=== PATIENT | female | born 1940 | race Caucasian/White ===

== ENCOUNTER 2019-09-25 09:24 | Inpatient (IN) | payer MEDICARE, BC ==
[~2019-09-25] VITALS: Ht 162.6 cm; Wt 66.6 kg
[~2019-09-25 09:24] MED LIST: MECL-183 PO
[2019-09-25] MEDS ORDERED: ipratropium/albuterol 3ml nebule NEB ONE (09:30)
[2019-09-25] MEDS ORDERED: furosemide 40mg/4ml inj IV ONE (09:30)
[2019-09-25] MEDS ORDERED: methylPREDNISolone sod succ 125mg/2ml vial IV ONE (09:30)
[2019-09-25] MEDS ORDERED: fentaNYL/PF 50MCG/1 ML 2ML syringe IV ONE (09:55)
[2019-09-25 10:04] LABS: BASOPHILS % (AUTO) 0.3 % (0-1); EOSINOPHILS % (AUTO) 0.5 % (0-6); HEMATOCRIT 41.7 % (35.0-45.0); HEMOGLOBIN 13.9 g/dl (12.0-16.0); LYMPHOCYTES # (AUTO) 0.8 X10'3 (1.1-4.8); LYMPHOCYTES % (AUTO) 9.7 % (21-51); MEAN CORPUSCULAR HEMOGLOBIN 31.7 PG (27.0-31.0); MEAN CORPUSCULAR HGB CONC 33.4 g/dL (33.0-36.5); MEAN CORPUSCULAR VOLUME 94.8 FL (78-98); MEAN PLATELET VOLUME 7.5 FL (7.4-10.4); MONOCYTES # (AUTO) 0.6 X10'3 (0-0.9); MONOCYTES % (AUTO) 7.3 % (2-12); NEUTROPHILS # (AUTO) 6.7 X10'3 (1.8-7.7); NEUTROPHILS % (AUTO) 82.2 % (42-75); PLATELET COUNT 228 X10'3 (140-440); RED CELL DISTRIBUTION WIDTH 13.4 % (11.5-14.5); WHITE BLOOD COUNT 8.1 X10'3 (4.5-11.0)
[2019-09-25 10:16] LABS: PARTIAL THROMBOPLASTIN TIME 27 SECONDS (22-32)
[2019-09-25 10:19] LABS: ALANINE AMINOTRANSFERASE 19 U/L (12-78); ALBUMIN 3.4 G/DL (3.4-5.0); ALBUMIN/GLOBULIN RATIO 0.9 (1.1-1.5); ALKALINE PHOSPHATASE 86 IU/L (46-116); ANION GAP 4 (8-16); ASPARTATE AMINO TRANSFERASE 19 U/L (10-37); BILIRUBIN,TOTAL 0.4 MG/DL (0.1-1.0); BLOOD UREA NITROGEN 10 MG/DL (7-18); BUN/CREATININE RATIO 11.6 (6.6-38.0); CALCIUM 8.9 MG/DL (8.5-10.1); CHLORIDE 102 MMOL/L (99-107); CREATININE 0.86 MG/DL (0.40-0.90); GLUCOSE 150 MG/DL (70-104); POTASSIUM 4.2 MMOL/L (3.5-5.1); SODIUM 138 MMOL/L (135-145); TOTAL CARBON DIOXIDE 32.4 MMOL/L (24-32); TOTAL PROTEIN 7.2 G/DL (6.4-8.2); eGFR 64 ML/MIN
[2019-09-25] MEDS ORDERED: DONE5TAB7 PO (10:44)
[2019-09-25] MEDS ORDERED: MEMA28CA PO (10:44)
--- NOTE | 2019-09-25 10:45 | NUR ---
Pt's daughter is Naomi Soriano, she is POA. She lives in the [facility] and is currently working on getting us the paperwork as the pt has Alzheimer's Disease. Naomi can be reached at [phone].
--- NOTE | 2019-09-25 10:47 | NUR ---
Pt's roommate is Juanis Brown and he is also able to have information per daughter, Naomi Soriano. He can be reached at [phone] or [phone].
[2019-09-25] MEDS ORDERED: magnesium hydroxide 30ml (MOM) UD suspension PO PRN (11:10)
[2019-09-25] MEDS ORDERED: ondansetron/PF 4mg/2ml inj IV PRN (11:10)
[2019-09-25] MEDS ORDERED: acetaminophen 325mg tablet PO PRN ×2 (11:10)
[2019-09-25] MEDS ORDERED: mag hydrox/Alum hydrox/simeth 30ml oral suspension PO PRN (11:10)
[2019-09-25] MEDS ORDERED: morphine 2 MG/ML inj. syringe IV PRN ×2 (11:10)
[2019-09-25 11:27] LABS: CLARITY,URINE CLEAR (Clear); COLOR,URINE YELLOW (Yellow); GLUCOSE, URINE NEGATIVE (Neg); KETONES,URINE 15 mg/dl (Neg); LEUKOCYTE ESTERASE ,URINE NEGATIVE (Neg); NITRITES, URINE NEGATIVE (Neg); OCCULT BLOOD,URINE TRACE-INTACT (Neg); PROTEIN,URINE NEGATIVE (Neg); UA COLLECTION TYPE FOLEY CATH; UROBILINOGEN,URINE 0.2 E.U/dL (0.2-1.0)
[2019-09-25 11:31] LABS: BACTERIA,URINE NONE SEEN /HPF (Neg); MUCUS STRANDS FEW /LPF (Neg); RBC,URINE 0-2 /HPF (0-2); SQUAMOUS EPITHELIAL CELL,UR FEW /LPF (FEW); WBC,URINE NONE SEEN /HPF (0-4)
[2019-09-25] MEDS: dextrose 5%-1/2 normal saline 1,000 ML IV SCH (12:44)
--- NOTE | 2019-09-25 14:35 | NUR ---
Received report from Michela MURILLO RN Addendum: 09/25/19 at 1941 by Mili Ramirez RN Report received from SINDI Cardona
--- NOTE | 2019-09-25 14:53 | NUR ---
Called pt's daughter to let her know the bed number and phone number to the unit the pt was being admitted to and that we have the pt's advanced directives on file.
[2019-09-25 15:00] VITALS: BP 132/72
--- NOTE | 2019-09-25 18:30 | NUR ---
Problems reprioritized. Patient report given, questions answered & plan of care reviewed with DERICK Abernathy.
--- NOTE | 2019-09-25 18:36 | NUR ---
Patient in room [facility]. I have received report from Mili SEPULVEDA and had the opportunity to ask questions and assume patient care.
[2019-09-25 20:00] VITALS: BP 123/79
[2019-09-25] MEDS: donepezil 5mg tablet PO SCH (20:51)
[2019-09-26] VITALS (16 sets, daily range): BP systolic 91–149; BP diastolic 47–79
[2019-09-26] MEDS: dextrose 5%-1/2 normal saline 1,000 ML IV SCH ×3 (00:19→19:31)
[2019-09-26 05:11] LABS: BASOPHILS % (AUTO) 0.3 % (0-1); EOSINOPHILS % (AUTO) 0.5 % (0-6); HEMATOCRIT 38.3 % (35.0-45.0); LYMPHOCYTES # (AUTO) 0.4 X10'3 (1.1-4.8); LYMPHOCYTES % (AUTO) 4.3 % (21-51); MEAN CORPUSCULAR HEMOGLOBIN 31.9 PG (27.0-31.0); MEAN CORPUSCULAR VOLUME 94.1 FL (78-98); MEAN PLATELET VOLUME 7.5 FL (7.4-10.4); MONOCYTES # (AUTO) 0.8 X10'3 (0-0.9); MONOCYTES % (AUTO) 7.8 % (2-12); NEUTROPHILS % (AUTO) 87.1 % (42-75); PLATELET COUNT 206 X10'3 (140-440); RED BLOOD COUNT 4.07 X10'6 (4.20-5.60); RED CELL DISTRIBUTION WIDTH 12.9 % (11.5-14.5); WHITE BLOOD COUNT 10.3 X10'3 (4.5-11.0)
[2019-09-26 05:24] LABS: ALBUMIN 3.1 G/DL (3.4-5.0); ANION GAP 4 (8-16); BLOOD UREA NITROGEN 6 MG/DL (7-18); BUN/CREATININE RATIO 7.8 (6.6-38.0); CALCIUM 8.3 MG/DL (8.5-10.1); CHLORIDE 98 MMOL/L (99-107); CREATININE 0.77 MG/DL (0.40-0.90); GLUCOSE 147 MG/DL (70-104); POTASSIUM 3.9 MMOL/L (3.5-5.1); SODIUM 132 MMOL/L (135-145); TOTAL CARBON DIOXIDE 30.2 MMOL/L (24-32); eGFR 72 ML/MIN
--- NOTE | 2019-09-26 06:15 | NUR ---
Problems reprioritized. Patient report given, questions answered & plan of care reviewed with REYNALDO SEPULVEDA.
--- NOTE | 2019-09-26 06:44 | NUR ---
I have received report from Michela SEPULVEDA and had the opportunity to ask questions and assume patient care.
--- NOTE | 2019-09-26 06:57 | NUR ---
Problems reprioritized. Patient report given, questions answered & plan of care reviewed with OR tobacco hanger, Hernan RN. Patient has POA, paper work in chart.
[2019-09-26] MEDS ORDERED: cefazolin/dext.iso 2gm/100ml 100 ML IV ONE (07:00)
--- NOTE | 2019-09-26 07:07 | NUR ---
Dr. Diaz in to see patient. Patient ready for surgery, LR hung @100ml/hr. Patient A&O x3 currently. POA paper work in chart.
[2019-09-26] MEDS ORDERED: cefazolin/dext.iso 2gm/50ml 50 ML IV ONE (07:15)
[2019-09-26] MEDS ORDERED: ondansetron/PF 4mg/2ml inj IV PRN (07:45)
[2019-09-26] MEDS ORDERED: ringers solution, lacted 1,000 ML IV SCH (07:45)
[2019-09-26] MEDS ORDERED: HYDROmorphone inj. 0.5 MG/0.5 ML DISP.SYRIN IV PRN ×2 (07:45)
[2019-09-26] MEDS ORDERED: acetaminophen 1,000mg/100ml IV 100 ML IV PRN (07:45)
[2019-09-26] MEDS ORDERED: tranexamic acid inj. 1,000 MG in normal saline 100ml IV soln 100 ML IV ONE (07:45)
[2019-09-26] MEDS ORDERED: meperidine/PF 25mg/ml syringe IV PRN (07:45)
[2019-09-26] MEDS ORDERED: morphine 2 MG/ML inj. syringe IV PRN (07:45)
[2019-09-26] MEDS ORDERED: morphine 4 MG/ML inj SYRINge IV PRN (07:45)
[2019-09-26] MEDS ORDERED: fentaNYL/PF 50MCG/1 ML 2ML syringe ONE (07:47)
[2019-09-26] MEDS ORDERED: midazolam 2 mg/2 ml injection ONE (07:48)
[2019-09-26] MEDS ORDERED: famotidine/PF 10 mg/ml inj IV ONE (07:52)
[2019-09-26] MEDS ORDERED: 0.9 % SODIUM CHLORIDE 10 ML VIAL ONE ×3 (08:24→08:25)
[2019-09-26] MEDS ORDERED: dexamethasone sod phosphate 4mg/ml inj. ONE (08:24)
[2019-09-26] MEDS ORDERED: propofol inj 20 ML IV ONE (08:25)
[2019-09-26] MEDS ORDERED: phenylephrine 10mg/ml inj. ONE (08:25)
[2019-09-26] MEDS ORDERED: ondansetron/PF 4mg/2ml inj ONE (08:25)
[2019-09-26] MEDS ORDERED: vancomycin 1,000mg inj ONE ×2 (08:25→08:30)
[2019-09-26] MEDS ORDERED: ePHEDrine 50MG/ML INJ. ONE (08:25)
[2019-09-26] MEDS ORDERED: LIDOcaine 2% (20mg/ml) 5ml vial ONE (08:25)
--- NOTE | 2019-09-26 09:03 | NUR ---
Received from OR via ORTHO BED , accompanied by Anesthesiologist BHANU and report given by Anesthesiolgist. PATIENT WITH 20G PIV IN LEFT UE RUNNING LR AT 100. 10L MASK ON AND VSS. RIGHT HIP DRESSING IS CDI. KNEE IMMOBILIZER ON WITH + DP TO FOOT ON RIGHT. SCDS DONNED IN RR Addendum: 09/26/19 at 0916 by Gareth Kang RN, RN Amended: Links added.
--- NOTE | 2019-09-26 09:43 | NUR ---
Patient has met criteria for transfer to floor. Patient vss. Pain at a tolerable level. Transferred via bed to room where they were hooked to vitals and RN notified patient has arrived. Bed low, call light within reach, 2-3 rails up, vss, belongings placed in room. Care turned over to DERICK JACOBS. RIGHT HIP DRESSING IS CDI. Addendum: 09/26/19 at 0946 by Gareth Carlson - DERICK SEPULVEDA Amended: Links added.
--- NOTE | 2019-09-26 15:38 | NUR ---
Fed patient her lunch, she has tremors and unable to get food to her mouth currently after surgery. Patient being titrated on her O2, reduced to 1L, no home O2.
[2019-09-26] MEDS: ceFAZolin 2gm in dextrose, iso 50 ML IV SCH ×2 (16:25→23:36)
--- NOTE | 2019-09-26 18:09 | NUR ---
Problems reprioritized. Patient report given, questions answered & plan of care reviewed with Michela SEPULVEDA, Ortho nurse float.
--- NOTE | 2019-09-26 18:58 | NUR ---
Patient in room [facility] 357. I have received report from Angeles SEPULVEDA and had the opportunity to ask questions and assume patient care.
[2019-09-26] MEDS: donepezil 5mg tablet PO SCH (21:12)
[2019-09-26] MEDS: HYDROcodone/acetaminophen 5mg/325mg tablet PO PRN (21:18)
--- NOTE | 2019-09-27 02:14 | NUR ---
HAVEN'T BEEN ABLE TO DART PATIENT D/T HER LEVEL OF DEMENTIA AND POOR HISTORIAN. POSSIBLE TO REACH DAUGHTER AND ASK QUESTIONS SHE HAS POA
[2019-09-27] MEDS: dextrose 5%-1/2 normal saline 1,000 ML IV SCH ×3 (03:10→20:39)
[2019-09-27 05:45] LABS: ALBUMIN 2.4 G/DL (3.4-5.0); ANION GAP 4 (8-16); BLOOD UREA NITROGEN 8 MG/DL (7-18); BUN/CREATININE RATIO 10.5 (6.6-38.0); CALCIUM 7.6 MG/DL (8.5-10.1); CHLORIDE 99 MMOL/L (99-107); CREATININE 0.76 MG/DL (0.40-0.90); GLUCOSE 121 MG/DL (70-104); POTASSIUM 4.1 MMOL/L (3.5-5.1); SODIUM 132 MMOL/L (135-145); TOTAL CARBON DIOXIDE 28.7 MMOL/L (24-32); eGFR 73 ML/MIN
[2019-09-27] MEDS: HYDROcodone/acetaminophen 5mg/325mg tablet PO PRN ×3 (05:45→15:53)
[2019-09-27 05:46] LABS: BASOPHILS % (AUTO) 0.1 % (0-1); EOSINOPHILS % (AUTO) 0.3 % (0-6); HEMATOCRIT 33.4 % (35.0-45.0); HEMOGLOBIN 11.3 g/dl (12.0-16.0); LYMPHOCYTES # (AUTO) 0.4 X10'3 (1.1-4.8); LYMPHOCYTES % (AUTO) 4.1 % (21-51); MEAN CORPUSCULAR HEMOGLOBIN 31.7 PG (27.0-31.0); MEAN CORPUSCULAR HGB CONC 33.8 g/dL (33.0-36.5); MEAN CORPUSCULAR VOLUME 93.6 FL (78-98); MEAN PLATELET VOLUME 7.8 FL (7.4-10.4); MONOCYTES % (AUTO) 10.2 % (2-12); NEUTROPHILS # (AUTO) 8.8 X10'3 (1.8-7.7); NEUTROPHILS % (AUTO) 85.3 % (42-75); PLATELET COUNT 170 X10'3 (140-440); RED BLOOD COUNT 3.56 X10'6 (4.20-5.60); RED CELL DISTRIBUTION WIDTH 13.1 % (11.5-14.5); WHITE BLOOD COUNT 10.3 X10'3 (4.5-11.0)
--- NOTE | 2019-09-27 06:34 | NUR ---
Problems reprioritized. Patient report given, questions answered & plan of care reviewed with JASON SEPULVEDA.
--- NOTE | 2019-09-27 06:47 | NUR ---
RECEIVED REPORT FROM CARLITOS SEPULVEDA
[2019-09-27 07:00] VITALS: BP 124/84
[2019-09-27] MEDS: enoxaparin 40mg/0.4ml syringe SUBCUT SCH (07:46)
[2019-09-27 12:00] VITALS: BP 109/63
--- NOTE | 2019-09-27 18:00 | NUR ---
Patient in room [facility]. I have received report from Hien SEPULVEDA and had the opportunity to ask questions and assume patient care.
[2019-09-27 20:00] VITALS: BP 169/94
[2019-09-27] MEDS: donepezil 5mg tablet PO SCH (20:21)
[2019-09-27] MEDS: HYDROcodone/acetaminophen 10/325mg tab PO PRN (20:22)
[2019-09-28] VITALS: BP 137/63
[2019-09-28 06:00] VITALS: BP 131/89
--- NOTE | 2019-09-28 06:12 | NUR ---
Problems reprioritized. Patient report given, questions answered & plan of care reviewed with Elisha SEPULVEDA.
--- NOTE | 2019-09-28 06:20 | NUR ---
received report from genesis coon
[2019-09-28 06:58] LABS: BASOPHILS % (AUTO) 0.2 % (0-1); EOSINOPHILS # (AUTO) 0.2 X10'3 (0-0.9); EOSINOPHILS % (AUTO) 2.4 % (0-6); HEMATOCRIT 31.8 % (35.0-45.0); HEMOGLOBIN 10.8 g/dl (12.0-16.0); LYMPHOCYTES # (AUTO) 0.4 X10'3 (1.1-4.8); LYMPHOCYTES % (AUTO) 4.9 % (21-51); MEAN CORPUSCULAR HEMOGLOBIN 31.7 PG (27.0-31.0); MEAN CORPUSCULAR VOLUME 93.1 FL (78-98); MEAN PLATELET VOLUME 8.1 FL (7.4-10.4); MONOCYTES # (AUTO) 0.8 X10'3 (0-0.9); NEUTROPHILS # (AUTO) 6.1 X10'3 (1.8-7.7); NEUTROPHILS % (AUTO) 81.5 % (42-75); PLATELET COUNT 153 X10'3 (140-440); RED BLOOD COUNT 3.41 X10'6 (4.20-5.60); RED CELL DISTRIBUTION WIDTH 13.1 % (11.5-14.5); WHITE BLOOD COUNT 7.5 X10'3 (4.5-11.0)
[2019-09-28 07:00] VITALS: BP 125/91
[2019-09-28 07:14] LABS: ALBUMIN 2.2 G/DL (3.4-5.0); ANION GAP 4 (8-16); BLOOD UREA NITROGEN 8 MG/DL (7-18); CALCIUM 7.7 MG/DL (8.5-10.1); CHLORIDE 95 MMOL/L (99-107); CREATININE 0.57 MG/DL (0.40-0.90); GLUCOSE 121 MG/DL (70-104); POTASSIUM 3.8 MMOL/L (3.5-5.1); SODIUM 129 MMOL/L (135-145); TOTAL CARBON DIOXIDE 30.5 MMOL/L (24-32); eGFR > 90 ML/MIN
[2019-09-28] MEDS: enoxaparin 40mg/0.4ml syringe SUBCUT SCH (07:57)
[2019-09-28] MEDS: dextrose 5%-1/2 normal saline 1,000 ML IV SCH (07:58)
[2019-09-28] MEDS: HYDROcodone/acetaminophen 10/325mg tab PO PRN (09:04)
--- NOTE | 2019-09-28 10:48 | NUR ---
Student Medication Administration: For this medication-pass time frame, all medication were reviewed, dispensed, administered and documented per hospital policy by salma Comer.
--- NOTE | 2019-09-28 10:48 | NUR ---
Student documentation: I have reviewed and agree with all interventions, assessments performed and documented by Nahomi, practical nursing teacher.
[2019-09-28 12:06] VITALS: BP 87/69
[2019-09-28 14:11] VITALS: BP 125/77
--- NOTE | 2019-09-28 14:44 | NUR ---
gave report to genesis caceres at [facility]
--- NOTE | 2019-09-28 15:47 | NUR ---
pt d/c with all belongings accompanied by [facility] personnel to go to [facility] sent powder packs w/pt
== END 2019-09-28 15:42 | DRG 470 ==
LOC: ER 09:25 → ED HOLD 11:10 → EDBEDREQ 11:27 → SUR 3N 15:05
PROVIDERS: ADMIT Internal Medicine; ATTEND Internal Medicine
PROC: 0SRR01A Replacement of Right Hip Joint, Femoral Surface with Metal Synthetic Substitute, Uncemented, Open Approach (ICD-10-PCS; principal; 2019-09-26 07:49)
DX: S72.001A Fracture of unspecified part of neck of right femur, initial encounter for closed fracture (principal); Z60.2 Problems related to living alone; F03.90 Unspecified dementia, unspecified severity, without behavioral disturbance, psychotic disturbance, mood disturbance, and anxiety; W18.39XA Other fall on same level, initial encounter; F31.9 Bipolar disorder, unspecified; Z79.82 Long term (current) use of aspirin; Z90.710 Acquired absence of both cervix and uterus; Z79.899 Other long term (current) drug therapy; Y93.89 Activity, other specified; Y92.89 Other specified places as the place of occurrence of the external cause; Y99.8 Other external cause status
CPT/HCPCS: 36415; 71045; 72170; 73502; 80048; 80053; 81001; 83036; 83880; 85025; 85610; 85730; 86885; 86900; 86901; 87081; 93005; 97161; 97530; 99285; A4615; A4618; A6454; A7000; C1776; G0378; J1100; J1650; J2001; J2250; J2270; J2370; J2405; J2704; J3010; J3370; J3490; J7120